=== PATIENT | male | born 1990 | race Caucasian/White ===

== ENCOUNTER 2019-06-27 04:31 | Emergency (ER) | payer OTHER ==
[~2019-06-27] VITALS: Ht 175.3 cm; Wt 69.6 kg
[2019-06-27 04:41] VITALS: Ht 175.3 cm; Wt 69.6 kg
[2019-06-27 09:52] VITALS: BP 134/78
== END 2019-06-27 09:52 | disposition home or self-care (01) ==
LOC: ED 04:31
DX: J02.9 Acute pharyngitis, unspecified (principal); I10 Essential (primary) hypertension